=== PATIENT | male | born 1980 | race Caucasian/White ===

== ENCOUNTER → 2020-02-06 | Emergency (ER) | payer MEDICAID ==
[~2020-02-06] VITALS: Ht 193 cm; Wt 108.9 kg
[~2020-02-06] MED LIST: HYDROcodone-ACET 5/325MG TAB PO ONE; MORPHINE SULF INJ 2 MG/ML SYRINGE 1ML IV ONE; MORPHINE SULFATE 4 MG/ML SYR/VIAL IV ONE; ONDANSETRON HCL 4 MG/2 ML VIAL IV ONE
[2020-02-06 04:03] LABS: Basophils # (auto) 0.1 10 ^3/uL (0-0.2); Basophils % (auto) 0.8 % (0.0-2.0); Eosinophils # (auto) 0.1 10 ^3/uL (0-0.8); Eosinophils % (auto) 1.3 % (0.0-7.0); Hematocrit 42.7 % (41.0-53.0); Hemoglobin 14.7 g/dL (13.5-17.5); Lymphocytes % (auto) 35.2 % (10.0-50.0); Mean Corpuscular Hemoglobin 30.7 pg (28.0-32.0); Mean Corpuscular Hgb Conc. 34.4 g/dL (32.0-36.0); Mean Corpuscular Volume 89.2 fL (80.0-100.0); Monocytes # (auto) 0.5 10 ^3/uL (0-1.3); Monocytes % (auto) 6.2 % (0.0-12.0); Neutrophils # (auto) 4.8 10 ^3/uL (1.6-8.6); Neutrophils % (auto) 56.5 % (37.0-80.0); Nucleated Red Blood Cells % 0.2 %; Platelet Count (auto) 140 10^3/uL (140-450); Red Blood Cells 4.78 10^6/uL (4.5-5.90); Red Cell Distribution Width 13.9 % (11.8-14.3); White Blood Cell 8.5 10^3/uL (4.4-10.8)
[2020-02-06 04:20] LABS: Albumin 3.8 g/dL (3.4-5.0); Calcium 8.6 mg/dL (8.5-10.1); INR 1.01 (0.9-1.15); Potassium 3.8 mmol/L (3.5-5.1)
[2020-02-06 04:23] LABS: BUN/Creatinine Ratio 11.6; Bilirubin, Total 0.3 mg/dL (0.2-1.0); Total Protein 7.5 g/dL (6.4-8.2)
[2020-02-06 05:04] VITALS: BP 125/75
== END | disposition home or self-care (01) ==
LOC: ER 00:07
DX: S10.83XA Contusion of other specified part of neck, initial encounter (principal); S00.83XA Contusion of other part of head, initial encounter; W19.XXXA Unspecified fall, initial encounter; Y93.89 Activity, other specified; Y92.89 Other specified places as the place of occurrence of the external cause; Y99.8 Other external cause status
CPT/HCPCS: 36415; 70450; 71250; 72125; 74176; 80053; 85025; 85610; 85730; 96374; 96375; 96376; 99285; J2270; J2405

== ENCOUNTER 2020-03-14 10:30 | Emergency (ER) | payer MEDICAID ==
[~2020-03-14] VITALS: Ht 193 cm; Wt 117.9 kg
[2020-03-14 10:56] LABS: Urine WBC None Seen /hpf (0 - 3)
[2020-03-14 11:09] LABS: Urine Bacteria NONE SEEN /hpf (None Seen); Urine Blood Negative /uL (Negative); Urine Specific Gravity 1.025 (1.001-1.035)
[2020-03-14 11:12] LABS: Basophils # (auto) 0 10 ^3/uL (0-0.2); Eosinophils # (auto) 0 10 ^3/uL (0-0.8); Eosinophils % (auto) 0.8 % (0.0-7.0); Hematocrit 40.7 % (41.0-53.0); Hemoglobin 13.6 g/dL (13.5-17.5); Lymphocytes # (auto) 1.4 10 ^3/uL (0.4-5.4); Lymphocytes % (auto) 28.3 % (10.0-50.0); Mean Corpuscular Hemoglobin 29.9 pg (28.0-32.0); Mean Corpuscular Hgb Conc. 33.5 g/dL (32.0-36.0); Mean Corpuscular Volume 89.1 fL (80.0-100.0); Monocytes # (auto) 0.4 10 ^3/uL (0-1.3); Monocytes % (auto) 8.3 % (0.0-12.0); Neutrophils % (auto) 61.6 % (37.0-80.0); Nucleated Red Blood Cells % 0.1 %; Platelet Count (auto) 214 10^3/uL (140-450); Red Blood Cells 4.57 10^6/uL (4.5-5.90); White Blood Cell 4.8 10^3/uL (4.4-10.8)
[2020-03-14 11:23] LABS: Amphetamine Screen, Urine NEGATIVE (NEGATIVE); Barbiturate Scree,Urine NEGATIVE (NEGATIVE); Benzodiazephine Screen, Urine NEGATIVE (NEGATIVE); Cannabinoid Screen, Urine POSITIVE (NEGATIVE); Cocaine Screen, Urine NEGATIVE (NEGATIVE); Opiate Scree,Urine NEGATIVE (NEGATIVE); Phencyclidine Screen, Urine NEGATIVE (NEGATIVE)
[2020-03-14 11:26] LABS: Albumin 3.7 g/dL (3.4-5.0); Anion Gap 6 (5-15); Blood Alcohol < 3.0 mg/dL (0-5); Blood Urea Nitrogen 15 mg/dL (7-18); Calcium 8.6 mg/dL (8.5-10.1); Carbon Dioxide 26 mmol/L (21-32); Chloride 108 mmol/L (98-107); Glucose 106 mg/dL (74-106); Potassium 4.1 mmol/L (3.5-5.1); Sodium 140 mmol/L (136-145)
[2020-03-14 11:30] LABS: Alanine Aminotransferase 28 U/L (16-61); Alkaline Phosphatase 52 U/L (45-117); Aspartate Aminotransferase 17 U/L (15-37); BUN/Creatinine Ratio 17.9; Bilirubin, Total 0.2 mg/dL (0.2-1.0); GFR African American 130 mL/min; GFR Non-African American 107 mL/min; Total Protein 7.5 g/dL (6.4-8.2)
[2020-03-14] MEDS ORDERED: HYDROcodone-ACET 5/325MG TAB PO ONE ×2 (11:45→17:00)
[2020-03-14 12:19] LABS: Acetaminophen < 2.0 ug/mL (10-30); Salicylate 4.3 mg/dL (2.8-20.0)
[2020-03-14] MEDS: LORazepam 0.5 MG TAB PO PRN (17:39)
[2020-03-14] MEDS ORDERED: ACETAMINOPHEN 325 MG TAB PO ONE (22:00)
[2020-03-15] MEDS ORDERED: HYDROcodone-ACET 5/325MG TAB PO ONE ×2 (09:30→18:45)
[2020-03-15] MEDS: LORazepam 0.5 MG TAB PO PRN (15:00)
[2020-03-15] MEDS: MIRTAZAPINE 30 MG TAB PO SCH ×2 (18:00)
[2020-03-15] MEDS ORDERED: HYDROcodone-ACET 5/325MG TAB ONE (18:35)
[2020-03-16] MEDS ORDERED: HYDROcodone-ACET 5/325MG TAB PO ONE
[2020-03-16] MEDS: HYDROcodone-ACET 5/325MG TAB PO PRN ×2 (11:32→22:28)
[2020-03-16] MEDS: MIRTAZAPINE 30 MG TAB PO SCH (18:00)
[2020-03-16] MEDS ORDERED: LORazepam 0.5 MG TAB PO ONE (21:45)
[2020-03-16] MEDS: MIRTAZAPINE 30 MG TAB PO ONE ×2 (22:29→22:34)
[2020-03-17] MEDS: HYDROcodone-ACET 5/325MG TAB PO PRN (13:34)
[2020-03-17] MEDS: MIRTAZAPINE 30 MG TAB PO SCH (18:00)
[2020-03-17] MEDS ORDERED: MIRTAZAPINE 30 MG TAB ONE (18:55)
[2020-03-17] MEDS ORDERED: HYDROcodone-ACET 5/325MG TAB ONE (18:56)
[2020-03-18] MEDS ORDERED: HYDROcodone-ACET 5/325MG TAB ONE (00:50)
[2020-03-18] MEDS: HYDROcodone-ACET 5/325MG TAB PO PRN ×3 (00:51→20:43)
[2020-03-18] MEDS ORDERED: ACETAMINOPHEN 500 MG TAB PO PRN (13:45)
[2020-03-18] MEDS: MIRTAZAPINE 30 MG TAB PO SCH (18:33)
[2020-03-19] MEDS ORDERED: HYDROcodone-ACET 10/325MG TAB PO ONE (01:45)
[2020-03-19] MEDS ORDERED: InsuLIN REG 1unit/0.01ml Soln (100units/ml) IV ONE (05:00)
[2020-03-19] MEDS: HYDROcodone-ACET 5/325MG TAB PO PRN ×2 (08:09→21:19)
[2020-03-19] MEDS ORDERED: HYDROcodone-ACET 5/325MG TAB PO ONE (16:30)
[2020-03-19] MEDS: MIRTAZAPINE 30 MG TAB PO SCH (18:16)
[2020-03-20] MEDS: HYDROcodone-ACET 5/325MG TAB PO PRN ×3 (05:08→19:59)
[2020-03-20] MEDS: MIRTAZAPINE 30 MG TAB PO SCH (18:03)
[2020-03-20] MEDS: LORazepam 0.5 MG TAB PO PRN (19:59)
[2020-03-20 21:49] VITALS: BP 129/79
[2020-03-21] MEDS: HYDROcodone-ACET 5/325MG TAB PO PRN (08:04)
== END 2020-03-21 10:48 | disposition home or self-care (01) ==
LOC: ER 10:30
DX: S90.31XA Contusion of right foot, initial encounter (principal); F32.9 Major depressive disorder, single episode, unspecified; M54.12 Radiculopathy, cervical region; X83.8XXA Intentional self-harm by other specified means, initial encounter; Y93.89 Activity, other specified; Y92.89 Other specified places as the place of occurrence of the external cause; Y99.8 Other external cause status
CPT/HCPCS: 36415; 71046; 73630; 80053; 80307; 80320; 80329; 81001; 83735; 85025; 93005